=== PATIENT | male | born 1960 | race Caucasian/White ===

== ENCOUNTER 2016-06-19 08:13 | Outpatient (CLI) | payer OTHER | END 2016-07-02 13:38 | disposition home or self-care (01) | LOC: PT 08:13 ==

== ENCOUNTER 2016-07-03 13:04 | Outpatient (RCR) | payer OTHER | END 2016-10-01 | disposition home or self-care (01) | LOC: PT | DX: Z47.1 Aftercare following joint replacement surgery (principal); Z96.651 Presence of right artificial knee joint ==

== ENCOUNTER 2016-10-02 15:28 | Outpatient (RCR) | payer OTHER | END 2016-10-19 15:00 | disposition home or self-care (01) | LOC: PT 15:28 | DX: Z47.1 Aftercare following joint replacement surgery (principal); Z96.651 Presence of right artificial knee joint ==

== ENCOUNTER → 2017-04-08 | Outpatient (REF) | LOC: LAB 09:01 | DX: Z01.818 Encounter for other preprocedural examination (principal); M25.562 Pain in left knee; G89.29 Other chronic pain; Z80.42 Family history of malignant neoplasm of prostate ==

== ENCOUNTER → 2017-04-10 | Outpatient (CLI) | payer OTHER | LOC: RAD 04-08 12:00 | DX: R94.31 Abnormal electrocardiogram [ECG] [EKG] (principal); I08.3 Combined rheumatic disorders of mitral, aortic and tricuspid valves ==

== ENCOUNTER → 2017-04-12 | Outpatient (CLI) | payer OTHER | LOC: CARDREHAB 07:49 | DX: R94.31 Abnormal electrocardiogram [ECG] [EKG] (principal) | CPT/HCPCS: A9500 ==

== ENCOUNTER 2017-08-01 15:30 | Outpatient (RCR) | payer OTHER | END 2017-08-04 | disposition home or self-care (01) | LOC: PT | DX: Z47.1 Aftercare following joint replacement surgery (principal); Z96.652 Presence of left artificial knee joint ==

== ENCOUNTER 2017-08-22 15:30 | Outpatient (RCR) | payer OTHER | END 2017-08-22 16:00 | disposition home or self-care (01) | LOC: PT 15:30 | DX: Z47.89 Encounter for other orthopedic aftercare (principal); Z96.652 Presence of left artificial knee joint ==

== ENCOUNTER → 2018-12-15 | Day surgery (SDC) | payer OTHER | LOC: MSO 08:17 | DX: Z12.11 Encounter for screening for malignant neoplasm of colon (principal); Z80.0 Family history of malignant neoplasm of digestive organs; Z96.653 Presence of artificial knee joint, bilateral; I10 Essential (primary) hypertension | CPT/HCPCS: 00812; J2704; J7120 ==

== ENCOUNTER → 2019-12-30 | Outpatient (CLI) | payer BC ==
[2019-11-10 18:40] VITALS: BP 109/68
[~2019-12-30] MED LIST: METOPROLOL SUCC50 M1 PO; VALSARTAN AND H1 TA3 PO
== END ==
LOC: RAD 09:45
DX: R60.9 Edema, unspecified (principal); K76.89 Other specified diseases of liver; N32.89 Other specified disorders of bladder

== ENCOUNTER → 2020-04-04 | Day surgery (SDC) | payer BC ==
[2019-11-10 18:40] VITALS: BP 109/68
== END ==
LOC: MSO 07:29
DX: Z12.11 Encounter for screening for malignant neoplasm of colon (principal); Z80.0 Family history of malignant neoplasm of digestive organs; D12.0 Benign neoplasm of cecum; K21.9 Gastro-esophageal reflux disease without esophagitis
CPT/HCPCS: 00811; 00813; J2704; J7120

== ENCOUNTER 2023-07-15 07:59 | Outpatient (RCR) | payer BC | END 2023-07-24 | disposition home or self-care (01) | LOC: PT | DX: R53.1 Weakness (principal) ==

== ENCOUNTER 2023-07-25 08:00 | Outpatient (RCR) | payer BC | END 2023-08-22 | disposition home or self-care (01) | LOC: PT | DX: R53.1 Weakness (principal) ==